=== PATIENT | female | born 1975 | race Caucasian/White ===

== ENCOUNTER 2019-12-06 15:34 | Outpatient (CLI) | payer MEDICARE, MEDICAID ==
--- NOTE | 2019-12-06 11:26 | SLEEP CARE CONSULTATION ---
Information from patient questionnaire entered by Charito Carrion. I have reviewed and concur with the information entered by Charito Carrion. This document represents the service I personally performed and the decisions made by me, Jasmine Moody MD, [facility]. History of Present Illness Service Date and Time: 12/06/2019 1100 Reason for Visit: New patient Chief Complaint: reports: Fatigue, Other (trouble sleeping at night, wake up with headaches) Duration of Symptoms: 4+ years Usual bedtime: none Time it takes to fall asleep: depends Snores at night: Yes (when congested) Number of times waking at night: 5+ Reasons for waking at night: reports: Pain, Bathroom, Other (headache) Recalls having dreams: Yes Usually gets out of bed at: depends, don't stay in bed all night Feels refreshed in the morning: No Morning headache: Yes Sleepy or fatigued during the day: Yes Ever fallen asleep while driving: No Takes day naps: Yes Dreams during day naps: Yes Prior sleep studies: Yes Year and Where: [place] Additional HPI information: I had the pleasure of seeing Ms. Stoll today regarding the possibility of her having a sleep disorder. As you know, she is a 44 year old lady who complains of fatigue. She had a sleep study in [place] over 5 years ago. She was given a CPAP which she could not use. She said she returned for follow ups with the sleep physician but he did not spend much time with her at all. The patient tells me that she normally goes to bed around 10 - 11 pm, and it takes her variable amount of time to fall asleep. She has been told that she snores loudly and irregularly at night. She has never been observed to stop breathing in her sleep. She sleeps in her bedroom and her living room. She sleeps alone. She can recall waking up on the average of 5+ times during the night. Most of the time she wakes up because of having to use the bathroom and pain. She has awakened occasionally because of her own snoring, choking, and having to gasp for air. There is a lot of tossing and turning in her sleep. In the morning she usually gets up out of the bed around 8 a.m. not feeling refreshed nor rested. She usually does have a morning headache. During the day she complains of feeling sleepy and fatigued. Her score on [place] Sleepiness Scale is 11 out of 24. She has fallen asleep while driving and has gone out of the cheng. She usually takes naps during the day. She reports having impaired concentration during the day. Subjective Initial [place] Sleepiness Scale score: 11 Past Medical History Past Medical History: reports: Arthritis (both knees), Fibromyalgia, Asthma, Other (lymphodema, obstructive and restrictive airway disease, degenerative disc disease lower back, migrains, blood clot in lungs) Social History The patient's occupation is not employed. Patient is Single and lives in [place]. Have you smoked in the past 12 months: No Years of smokin Quit date: 2011 Alcohol use: No Caffeine use: Yes Caffeine amount and frequency: occasionally Family History Family history of sleep disordered breathing: Yes Family Hx Sleep Apnea: Mother: Snoring, Father: Snoring Allergies and Home Medications Drug allergies reviewed: Yes Home medication list reviewed: Yes Review of Systems Weight gain over past 5 years: 200 Weight loss over past 5 years: 100 Cardiovascular: reports: leg or foot swelling, have to sleep sitting up Respiratory: reports: shortness of breath, wheeze Ear/Nose/Throat: reports: nasal congestion Endocrine: reports: too hot or cold Musculoskeletal: reports: joint pain, back pain Immunologic: reports: allergies to food or environment Physical Exam Height: 5 ft 6 in Weight: 460 lb (according to the patient) Body Mass Index: 74.2 BMI Classification: Morbidly Obese Impression and Plan IMPRESSION: 1. Obstructive Sleep Apnea-Hypopnea Syndrome, as previously diagnosed. The severity is unknown. She appears to be symptomatic for loud snoring, frequent awakenings during the night, nocturnal choking, unrefreshed sleep, morning headache, persistent fatigue, and daytime hypersomnolence. Narrow oropharynx and obesity are common predisposing factors for obstructive sleep apnea-hypopnea syndrome. Pathophysiology of sleep-disordered breathing was discussed. I recommend proceeding to polysomnography to confirm the diagnosis and to assess severity. However, because her weight is greater than the 400-lb limit of our sleep lab, a home sleep apnea test (HSAT) will be ordered (she cannot physically go to [facility] in [place]). Plan: 1. Schedule a home sleep apnea test (HSAT). 2. Avoid long distance driving or when feeling sleepy. 3. Avoid alcohol, sedative and muscle relaxant around bedtime. 4. Attempt to lose weight. 5. Return in 1 to 2 weeks after the study to discuss results and initiate therapy Visit Type: Telehealth Video Patient Location: Home Location of Provider: Home Patient agrees and consents to this telehealth visit type: Yes Patient agrees to have their insurance billed: Yes Time Spent with Patient (minutes): 15 Provider Statement: I spent 100% of the Telehealth Video Call with the patient with greater than 50% spent counseling the patient and coordination of care.
== END 2019-12-06 15:35 | disposition home or self-care (01) ==
LOC: SC 15:34
PROVIDERS: ATTEND Internal Medicine Pulmonary Disease
DX: G47.33 Obstructive sleep apnea (adult) (pediatric) (principal); E66.01 Morbid (severe) obesity due to excess calories; Z68.45 Body mass index [BMI] 70 or greater, adult

== ENCOUNTER → 2020-01-10 | Outpatient (CLI) | payer MEDICARE, MEDICAID | LOC: SC 19:30 | PROVIDERS: ATTEND Internal Medicine Pulmonary Disease | DX: G47.33 Obstructive sleep apnea (adult) (pediatric) (principal); E66.01 Morbid (severe) obesity due to excess calories; Z68.45 Body mass index [BMI] 70 or greater, adult | CPT/HCPCS: G0399 ×2; 95806 ==

== ENCOUNTER 2020-05-21 07:00 | Outpatient (CLI) | payer MEDICARE, MEDICAID ==
[2020-05-21 16:47] LABS: BASOPHILS % (AUTO) 0.6 %; EOSINOPHILS # (AUTO) 0.1 10^3/uL (0.0-0.7); EOSINOPHILS % (AUTO) 2.1 %; LYMPHOCYTES # (AUTO) 1.6 10^3/uL (1.5-3.5); LYMPHOCYTES % (AUTO) 24.3 %; MEAN CORPUSCULAR HEMOGLOBIN 26.3 pg (27.0-31.0); MEAN CORPUSCULAR HGB CONC 31.1 g/dL (32.0-36.0); MEAN CORPUSCULAR VOLUME 84.4 fL (81.0-99.0); MEAN PLATELET VOLUME 11.8 fL (7.9-10.8); MONOCYTES # (AUTO) 0.4 10^3/uL (0.0-1.0); MONOCYTES % (AUTO) 5.3 %; NEUTROPHILS # (AUTO) 4.4 10^3/uL (1.5-6.6); NEUTROPHILS % (AUTO) 67.1 %; PLT - PLATELET COUNT 240 10^3/uL (130-450); RED BLOOD COUNT 4.95 10^6/uL (4.20-5.40); RED CELL DISTRIBUTION WIDTH 14.8 % (12.0-15.0); WHITE BLOOD COUNT 6.6 x10^3/uL (4.8-10.8)
[2020-05-21 17:21] LABS: INR 2.6 (0.8-1.2); PT - PROTHROMBIN TIME 27.5 secs (9.9-12.6)
[2020-05-21 18:50] LABS: CREATININE 0.5 mg/dL (0.4-1.0)
== END 2020-05-21 23:59 | disposition home or self-care (01) ==
LOC: LAB.R 07:00
PROVIDERS: ATTEND Family Medicine
DX: I27.82 Chronic pulmonary embolism (principal); Z79.01 Long term (current) use of anticoagulants
CPT/HCPCS: 36415; 80048; 85025; 85610

== ENCOUNTER 2022-11-14 18:52 | Outpatient (CLI) | payer MEDICARE, MEDICAID | END 2022-11-14 23:59 | disposition short-term general hospital (02) | LOC: EMS 18:52 | DX: M25.562 Pain in left knee (principal); M25.561 Pain in right knee; R26.2 Difficulty in walking, not elsewhere classified | CPT/HCPCS: A0425; A0429; A0888 ==